=== PATIENT | male | born 1985 | race Caucasian/White ===

== ENCOUNTER → 2019-04-30 | Day surgery (SDC) | payer OTHER ==
[~2019-04-30] MED LIST: BUPIVACAINE HCL 0.5 % INJ/PF 30 ML SDV ONE; LIDOCAINE 2% INJ (20 MG/ML) 20 ML MDV ONE; METHYLPREDNISOLONE ACETATE INJ 40 MG/1 ML ML ONE
--- NOTE | 2019-04-30 16:16 | Operative Report ---
PREOPERATIVE DIAGNOSIS: Lumbar Spondylosis POSTOPERATIVE DIAGNOSIS: Lumbar Spondylosis PROCEDURE: Radiofrequency Ablation of medial branches - RT L3 L4 L5 / LT L3 L4 L5 DATE OF PROCEDURE: 04/30/2019 ANESTHESIA: Local plus p.o. Valium COMPLICATIONS: None CONSENT: A full description of the procedure was provided including benefits as well as possible complications. All questions were answered and informed consent was given and signed. ASA guidelines for fasting were verified prior to sedation. PROCEDURE IN DETAIL The patient was brought into the fluoroscopy suite and positioned into the prone position on the fluoroscopy table and allowed to adjust to a position of comfort. A grounding pad was placed on the right thigh. The lumbar region was widely prepped with a chloraprep solution, allowed to air dry and draped in standard sterile surgical fashion. Local anesthesia was provided by 1 mL of 1 % lidocaine delivered with a 25 g needle. A 17g 100mm radiofrequency introducer needle was placed to the planned anatomic targets guided with intermittent fluoroscopy with a perpendicular approach to terminally place at the junction of the superior articular process and the t ransverse process of the bilateral L4 L5 and the base of the sacral ala on the lateral for the L5 medial branch nerve. The stylets were removed and radiofrequency probes with a 4mm active tip were then inserted. Needle tip position of the probes was verified in the AP, oblique, and lateral views. At each site, the medial branch nerve was stimulated at 2 Hz to a maximum 1-2 volts determined to finalize safe needle and electrode placement. The patient was awake and responsive during this portion of the procedure. Each target was anesthetized with 1-2 mL of 2 % lidocaine for anesthesia for lesioning and then each target was lesioned at 80 degrees Celsius for 2 minutes and 30 seconds. Tissue impedences were noted to be between 250 and 500 Ohms. Solution of Sensorcaine and Depo-Medrol was injected at each level. electrodes and needles were then removed and bandages placed over the needle placement sites, the patient then returned to the supine position on a stretcher and transported to the recovery room without hemodynamic, neurologic, or allergic reactions. Fluoroscopic images were printed for hard copy recording and digitally archived. POST PROCEDURE EVALUATION: The patient was comfortable in the recovery room. The patient is aware that pain may worsen before remitting and 4 6 weeks may be required prior to the onset of pain relief. IMPRESSION: 1. Technically successful lateral L3 L4 L5 medial branch radiofrequency neurotomy for denervation on the bilateral without complication. 2. RTC in 6 weeks. 3. Estimated Blood Loss: 5cc 4. Fluoroscopy time: See nursing record for seconds
== END ==
LOC: RAD 13:41
PROVIDERS: ATTEND Student in an Organized Health Care Education/Training Program
DX: M47.817 Spondylosis without myelopathy or radiculopathy, lumbosacral region (principal)
CPT/HCPCS: 64635; 64636; J3490 ×2; J1030

== ENCOUNTER 2019-09-09 21:54 | Emergency (ER) | payer OTHER ==
--- NOTE | 2019-09-09 22:48 | ER Document Report ---
ED Medical Screen (RME) - General Chief Complaint: Rectal Bleeding Stated Complaint: BLOOD IN STOOL/ABD PAIN Time Seen by Provider: 09/09/19 22:43 Mode of Arrival: Ambulatory Information source: Patient Notes: 34-year-old male patient with history of IBS presenting to the emergency department concern for bloody stools over the last week. Patient reports there is red blood dripping from his rectum and also mixed in with his stool when he has bowel movement. He is also complaining of generalized abdominal pain. Patient reports that he has no history of hemorrhoids and he does not see any external hemorrhoids. He does report some pain at the rectum when having bowel movements. Abdomen soft, nontender in triage. I have greeted and performed a rapid initial assessment of this patient. A comprehensive ED assessment and evaluation of the patient, analysis of test results and completion of the medical decision making process will be conducted by additional ED providers. I have specifically instructed the patient or family members with the patient to immediately return to any nursing staff should anything change in the patient's condition or with their chief complaint. TRAVEL OUTSIDE OF THE [place] IN LAST 30 DAYS: No Physical Exam - Vital signs Vitals: Temp Pulse Resp BP Pulse Ox 98.7 F 98 20 178/99 H 99 09/09/19 22:14 09/09/19 22:14 09/09/19 22:14 09/09/19 22:14 09/09/19 22:14 Course - Vital Signs Vital signs: Temp Pulse Resp BP Pulse Ox 98.7 F 98 20 178/99 H 99 09/09/19 22:14 09/09/19 22:14 09/09/19 22:14 09/09/19 22:14 09/09/19 22:14
[2019-09-09 23:16] LABS: ABSOLUTE BASOPHILS # (AUTO) 0.1 10^3/uL (0.0-0.2); ABSOLUTE EOSINOPHILS # (AUTO) 0.6 10^3/uL (0.0-0.6); ABSOLUTE MONOCYTES (AUTO) 0.9 10^3/uL (0.1-1.4); BASOPHILS % (AUTO) 0.8 % (0-2); EOSINOPHILS % (AUTO) 6.5 % (0-6); HEMATOCRIT 45.9 % (37.9-51.0); HEMOGLOBIN 16.6 g/dL (13.5-17.0); LYMPHOCYTES % (AUTO) 41.4 % (13-45); MEAN CORPUSCULAR HEMOGLOBIN 30.4 pg (27.0-33.4); MEAN CORPUSCULAR HGB CONC 36.2 g/dL (32.0-36.0); MEAN CORPUSCULAR VOLUME 84 fl (80-97); MONOCYTES % (AUTO) 9.2 % (3-13); PLATELET COUNT 276 10^3/uL (150-450); RED BLOOD COUNT 5.46 10^6/uL (4.35-5.55); RED CELL DISTRIBUTION WIDTH 13.6 % (11.5-14.0); SEGMENTED NEUTROPHILS % (AUTO) 42.1 % (42-78); TOTAL CELLS COUNTED % (AUTO) 100 %; WHITE BLOOD COUNT 9.6 10^3/uL (4.0-10.5)
[2019-09-09 23:19] LABS: APPEARANCE,URINE CLEAR; BILIRUBIN,URINE NEGATIVE (NEGATIVE); COLOR,URINE YELLOW; GLUCOSE, URINE NEGATIVE (NEGATIVE); KETONES,URINE NEGATIVE (NEGATIVE); LEUKOCYTE ESTERASE,URINE NEGATIVE (NEGATIVE); NITRITE,URINE NEGATIVE (NEGATIVE); PROTEIN,URINE NEGATIVE (NEGATIVE); URINE SPECIFIC GRAVITY 1.015; UROBILINOGEN,URINE NEGATIVE mg/dL (<2.0)
--- NOTE | 2019-09-10 02:53 | ER Document Report ---
ED General - General Chief Complaint: Rectal Bleeding Stated Complaint: BLOOD IN STOOL/ABD PAIN Time Seen by Provider: 09/09/19 22:43 Primary Care Provider: OTTONIEL,MELODY [Primary Care Provider] - Follow up as needed Mode of Arrival: Ambulatory Notes: 34-year-old male presents emergency department complaining of bright red rectal bleeding for the past week that got acutely worse this evening. It has been going on for the past week and patient has lower abdominal pain associated with it that worsens every time he has a bowel movement. Denies any rectal pain. Denies any foreign bodies in his rectum. Denies any history of rectal bleeding in the past. Has been diagnosed with irritable bowel syndrome but states that he was told it is because he has 3-4 bowel movements every day. Patient states they do not interfere with his life and he does not feel like this is abnormal. Denies nausea or vomiting, denies fevers or chills. TRAVEL OUTSIDE OF THE [place] IN LAST 30 DAYS: No Past Medical History - General Information source: Patient - Social History Smoking Status: Current Every Day Smoker Drug Abuse: None Family History: Reviewed & Not Pertinent Patient has homicidal ideation: No Review of Systems - Review of Systems Constitutional: No symptoms reported Gastrointestinal: See HPI -: Yes All other systems reviewed and negative Physical Exam - Vital signs Vitals: Temp Pulse Resp BP Pulse Ox 98.7 F 98 20 178/99 H 99 09/09/19 22:14 09/09/19 22:14 09/09/19 22:14 09/09/19 22:14 09/09/19 22:14 Interpretation: Hypertensive - Notes Notes: GENERAL: Alert, interacts well. No acute distress. HEAD: Normocephalic, atraumatic EYES: Pupils equal, round and reactive to light, extraocular movements intact. ENT: Oral mucosa moist, tongue midline. NECK: Full range of motion, supple, trachea midline. LUNGS: Clear to auscultation bilaterally, no wheezes, rales or rhonchi, no respiratory distress. HEART: Regular rate and rhythm, no murmurs, gallops, rubs. ABDOMEN: Soft, suprapubic tenderness to palpation, nondistended, bowel sounds present in all 4 quadrants. RECTAL: No hemorrhoids, no fissures, small amount of blood on my finger after rectal examination, complains of pain with palpation at approximately 3 o'clock position, no fluctuance noted. EXTREMITIES: Moves all 4 extremities spontaneously, no edema, radial and dorsalis pedis pulses 2/4 bilaterally. No cyanosis. NEUROLOGICAL: Alert and oriented x3, normal speech. PSYCH: Normal mood, normal affect. SKIN: Warm, Dry, normal turgor, no rashes or lesions noted. Course - Re-evaluation Re-evalutation: 09/10/19 05:20 CBC unremarkable, CMP unremarkable, lipase normal, urinalysis unremarkable, occult blood is negative despite me seeing red on my finger. Stool has been sen t for Gram stain and culture. Abdomen/Pelvis CT 09/10/19 02:43 IMPRESSION: No acute process is seen within the abdomen or pelvis. Hepatic steatosis Currently there is no evidence of life threatening GI bleed. Patient is strongly recommended to follow-up with GI as an outpatient for a colonoscopy for direct visualization given the bleeding. 09/10/19 05:22 COVID swab will be performed in order to hopefully facilitate the colonoscopy as an outpatient. - Vital Signs Vital signs: Temp Pulse Resp BP Pulse Ox 97.9 F 73 18 132/89 H 98 09/10/19 04:36 09/10/19 04:36 09/10/19 04:36 09/10/19 04:36 09/10/19 04:36 - Laboratory Result Diagrams: 09/09/19 23:05 09/10/19 03:15 Laboratory results interpreted by me: 09/09/19 23:05 MCHC 36.2 H Eos % (Auto) 6.5 H Discharge - Discharge Clinical Impression: Rectal bleeding Condition: Stable Disposition: HOME, SELF-CARE Additional Instructions: Today I did not find a cause for rectal bleeding. Your CAT scan did not show any signs of an abscess. It is very important that you follow-up with your GI doctor to get direct visualization. This means you need a colonoscopy. This can be done by a surgeon or GI doctor. Please return to the emergency department should you develop bleeding that happens at rest rather than with bowel movements, if you develop lightheadedness, shortness of breath or dizziness or any new or concerning symptoms including fever. We have performed a COVID swab this evening so that you will hopefully have the results in time to have a colonoscopy performed in the next few days. You do not have any symptoms of COVID-19 this evening. Forms: Return to Work Referrals: [facility] [Primary Care Provider] - Follow up as needed BRITTANY WRAY MD [ACTIVE STAFF] - Follow up as needed
[2019-09-10 04:10] LABS: ALBUMIN 4.3 g/dL (3.5-5.0); ALKALINE PHOSPHATASE 50 U/L (38-126); ANION GAP 6 (5-19); ASPARTATE AMINO TRANSFERASE 27 U/L (17-59); BILIRUBIN,TOTAL 0.5 mg/dL (0.2-1.3); BLOOD UREA NITROGEN 15 mg/dL (7-20); CALCIUM 9.8 mg/dL (8.4-10.2); CARBON DIOXIDE 24 mmol/L (22-30); CHLORIDE 107 mmol/L (98-107); GLUCOSE 95 mg/dL (75-110); POTASSIUM 4.1 mmol/L (3.6-5.0); TOTAL PROTEIN 7.1 g/dL (6.3-8.2)
--- NOTE | 2019-09-10 04:14 | RADIOLOGY REPORT (SQ) ---
CT ABDOMEN AND PELVIS WITH INTRAVENOUS CONTRAST: 09/10/2019 3:12 AM CDT HISTORY: 34-year old with rectal and lower abdominal pain. COMPARISON: None available TECHNIQUE: Axial contiguous images were obtained from the lung bases to the proximal femurs with intravenous intravenous contrast administered. Sagittal and coronal reconstructions were also obtained and reviewed. This exam was performed according to our departmental dose-optimization program, which includes automated exposure control, adjustment of the mA and/or KV according to the patient's size and/or use of iterative reconstruction technique. FINDINGS: No focal consolidative airspace opacities are seen. No discrete pleural effusion is seen. The visualized hepatic parenchyma is diffusely low in attenuation. No focal enhancing lesion is seen. The gallbladder demonstrates no evidence of calcified gallstones. The spleen and pancreas are normal in contour. The bilateral adrenal glands appear unremarkable. Both kidneys demonstrate no evidence of hydronephrosis. The urinary bladder is mildly distended, and appears grossly unremarkable. The stomach is not well distended. The small bowel loops appear unremarkable. No pericolonic inflammatory stranding is seen. The appendix appears unremarkable. There are multiple diverticula seen within the sigmoid and descending colon, without evidence to suggest diverticulitis. There is no evidence of pneumoperitoneum or free fluid. The aorta and IVC appear normal in size. No significantly enlarged lymph nodes are seen in the abdomen or pelvis. Review of the bone show no evidence of any suspicious lytic or blastic lesions. IMPRESSION: No acute process is seen within the abdomen or pelvis. Hepatic steatosis
[2019-09-10 04:38] VITALS: BP 132/89
== END 2019-09-10 06:12 | disposition home or self-care (01) ==
LOC: ER 21:54
DX: K62.5 Hemorrhage of anus and rectum (principal); R10.30 Lower abdominal pain, unspecified; K76.0 Fatty (change of) liver, not elsewhere classified; F17.200 Nicotine dependence, unspecified, uncomplicated; Z20.828 Contact with and (suspected) exposure to other viral communicable diseases
CPT/HCPCS: 99284; 36415; 83690; 85025; 87635; 82272; 80053; 81001; 74177; C9803